=== PATIENT | male | born 1965 | race Two or more races ===

== ENCOUNTER → 2018-08-21 | Outpatient (CLI) | payer OTHER | END | disposition home or self-care (01) | LOC: RAD 501 14:55 | DX: M25.512 Pain in left shoulder (principal) ==

== ENCOUNTER 2018-11-20 11:52 | Outpatient (CLI) | payer OTHER | END 2018-11-20 11:54 | disposition home or self-care (01) | LOC: RAD 11:52 | DX: Z76.89 Persons encountering health services in other specified circumstances (principal) ==

== ENCOUNTER 2019-12-31 13:12 | Outpatient (CLI) | payer OTHER | END 2019-12-31 13:17 | disposition home or self-care (01) | LOC: SONOGRAMA 13:12 → MAMO-SONO 13:15 → SONOGRAMA 13:17 | PROVIDERS: ATTEND Urology | DX: N20.0 Calculus of kidney (principal) ==

== ENCOUNTER 2020-03-22 14:26 | Outpatient (CLI) | payer OTHER | END 2020-03-22 14:33 | disposition home or self-care (01) | LOC: RAD 14:26 | PROVIDERS: ATTEND Urology | DX: N20.0 Calculus of kidney (principal); M17.0 Bilateral primary osteoarthritis of knee; M25.561 Pain in right knee; M25.562 Pain in left knee ==

== ENCOUNTER 2020-08-04 10:46 | Outpatient (CLI) | payer OTHER | END 2020-08-04 11:00 | disposition home or self-care (01) | LOC: TOM 10:46 | PROVIDERS: ATTEND Internal Medicine Gastroenterology | DX: R10.13 Epigastric pain (principal); R19.4 Change in bowel habit ==

== ENCOUNTER 2020-12-04 19:24 | Emergency (ER) | payer OTHER ==
[~2020-12-04] VITALS: Ht 172.7 cm; Wt 84.4 kg
[2020-12-04] MEDS ORDERED: TRULICITY0.75 MG/0. (19:35)
[2020-12-04] MEDS ORDERED: CHILDREN'S ASPI81 MG (19:35)
[2020-12-04] MEDS ORDERED: FORTAMET500 MG (19:35)
[2020-12-04] MEDS ORDERED: CARTIA XT180 MG (19:35)
[2020-12-04] MEDS ORDERED: CIALIS5 MG (19:35)
[2020-12-04] MEDS ORDERED: ATACAND16 MG (19:35)
== END 2020-12-04 22:47 | disposition home or self-care (01) ==
LOC: ER 19:24
DX: J06.9 Acute upper respiratory infection, unspecified (principal)

== ENCOUNTER 2021-02-14 08:00 | Outpatient (CLI) | payer OTHER ==
[~2021-02-14 08:00] MED LIST: ATACAND16 MG; CARTIA XT180 MG; CHILDREN'S ASPI81 MG; CIALIS5 MG; FORTAMET500 MG; TRULICITY0.75 MG/0.
== END 2021-02-14 08:30 | disposition home or self-care (01) ==
LOC: PPH VACUNA 08:00
PROVIDERS: ATTEND Emergency Medicine Pediatric Emergency Medicine
DX: Z23 Encounter for immunization (principal)

== ENCOUNTER 2021-05-30 13:35 | Outpatient (CLI) | payer OTHER | END 2021-05-30 13:52 | disposition home or self-care (01) | LOC: SONOGRAMA 13:35 | DX: N20.0 Calculus of kidney (principal) ==

== ENCOUNTER 2021-12-16 08:35 | Outpatient (CLI) | payer OTHER | END 2021-12-16 08:44 | disposition home or self-care (01) | LOC: SONOGRAMA 08:35 | PROVIDERS: ATTEND Urology | DX: K76.89 Other specified diseases of liver (principal) ==